=== PATIENT | female | born 1985 | race Caucasian/White ===

== ENCOUNTER 2017-04-08 09:34 | Emergency (ER) | payer OTHER ==
[2017-04-08 10:32] VITALS: BP 100/63
--- NOTE | 2017-04-08 10:49 | UC ---
Back Pain HPI - HPI Summary HPI Summary: $ year disabled child lunged forward when they were on the stairs yesterday she jerked backward so they would not fall. Awoke this morning with stiffness in lower back. has had similar events in the past and has gotten good relief with flexeril and ibuprofen - History of Current Complaint Chief Complaint: UCBiteInjury Stated Complaint: BACK COMPLAINT Time Seen by Provider: 04/08/17 10:40 Hx Obtained From: Patient Hx Last Menstrual Period: 03/29/17 ?: No Onset/Duration: Sudden Onset, Worse Since - this morning Timing: Constant Severity Initially: Mild Severity Currently: Moderate Pain Intensity: 7 Pain Scale Used: 0-10 Numeric Back Pain: Is Discrete @ - lower back both sides Character: Throbbing, Spasmodic, Stiffness Aggravating Factor(s): Movement, Lifting, Bending Associated Signs And Symptoms: Positive: Negative - Allergies/Home Medications Allergies/Adverse Reactions: Allergies Allergy/AdvReac Type Severity Reaction Status Date / Time Diazepam [From Valium] Allergy Intermediate hyperactivity, Verified 04/08/17 10: 31 "convulsions Morphine Allergy Difficulty Verified 04/08/17 10:31 Breathing Home Medications: Home Medications Ibuprofen TAB* [Motrin TAB* 800 MG] 800 mg PO Q6H PRN 04/08/17 [History Confirmed 04/08/17] Ondansetron [Zofran 8 MG Odt] 8 mg PO PRN 04/08/17 [History] QUEtiapine XR TAB* [Seroquel Xr TAB*] 200 mg PO BEDTIME 04/08/17 [History Confirmed 04/08/17] PMH/Surg Hx/FS Hx/Imm Hx Previously Healthy: No Psychological History: Anxiety - Surgical History Surgical History: Yes Surgery Procedure, Year, and Place: APPENDECTOMY, 2 C-SECTIONS, T&A,TUBES EARS, TUBAL AFTER 2ND , MELANOMA REMOVED FROM FOOT - Family History Known Family History: Positive: None, Cardiac Disease, Hypertension, Diabetes - Social History 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 Lives: With Family Alcohol Use: Rare Substance Use Type: None Smoking Status (MU): Light Every Day Tobacco Smoker Type: Cigarettes Amount Used/How Often: HALF A PACK OF CIGARETTES A DAY Length of Time of Smoking/Using Tobacco: 15 YRS Have You Smoked in the Last Year: Yes Household Exposure Type: Cigarettes Cessation Counseling: Counseled 3+Min - 10 Min - Immunization History Most Recent Influenza Vaccination: FALL 2012 Review of Systems Constitutional: Negative Skin: Negative Eyes: Negative ENT: Negative Respiratory: Negative Cardiovascular: Negative Gastrointestinal: Negative Genitourinary: Negative Motor: Negative Neurovascular: Negative Musculoskeletal: Myalgia - lower back Neurological: Negative Psychological: Negative Is Patient Immunocompromised?: No All Other Systems Reviewed And Are Negative: Yes Physical Exam Triage Information Reviewed: Yes Appearance: Well-Appearing, Pain Distress, Obese Vital Signs: Initial Vital Signs Temp 98.6 F 04/08/17 10:20 Pulse 96 04/08/17 10:20 Resp 16 04/08/17 10:20 BP 100/63 04/08/17 10:20 Pulse Ox 98 04/08/17 10:20 Vital Signs Reviewed: Yes Eye Exam: Normal Eyes: Positive: Conjunctiva Clear ENT Exam: Normal ENT: Positive: Normal ENT inspection, Hearing grossly normal. Negative: Nasal congestion, Nasal drainage, Trismus, Muffled/hoarse voice Dental Exam: Normal Neck exam: Normal Neck: Positive: Supple, Nontender Respiratory Exam: Normal Respiratory: Positive: Chest non-tender, No respiratory distress, No accessory muscle use Cardiovascular Exam: Normal Cardiovascular: Positive: RRR, Pulses Normal, Brisk Capillary Refill Musculoskeletal Exam: Normal Musculoskeletal: Positive: No Edema, Strength Limited @ - back, ROM Limited @ - lower back Neurological Exam: Normal Neurological: Positive: Alert, Muscle Tone Normal Psychological Exam: Normal Skin Exam: Normal Back Pain Course/Dx - Course Course Of Treatment: continue Ibuprofen Add soma, core strengthening exercise, follow with PCP , smoking cesassation information - Differential Dx/Diagnosis Differential Diagnosis/HQI/PQRI: Fracture, Renal Colic, Strain, Sprain Provider Diagnoses: Muscle strain lower back, nicotine dependent Discharge - Discharge Plan Condition: Stable Disposition: HOME Prescriptions: Carisoprodol TAB* [Soma TAB*] 350 mg PO TID PRN #15 tab MDD 3 PRN Reason: muscle spasm Patient Education Materials: How to Stop Smoking (ED), Low Back Strain (ED), Muscle Spasm (ED), Core Strengthening Exercises (GEN), Lower Back Exercises (ED) Referrals: Mitesh Levine MD [Primary Care Provider] - 1 Week
== END 2017-04-08 10:58 | disposition home or self-care (01) ==
LOC: UCCORT 09:34
DX: S39.012A Strain of muscle, fascia and tendon of lower back, initial encounter (principal); X50.1XXA Overexertion from prolonged static or awkward postures, initial encounter
CPT/HCPCS: 99212; G0463

== ENCOUNTER 2017-12-03 20:08 | Emergency (ER) | payer OTHER ==
[2017-12-03 20:18] VITALS: BP 105/61
--- NOTE | 2017-12-03 20:35 | UC ---
Seizure HPI - HPI Summary HPI Summary: Had generalized seizure at 1630 and fell down. Last seizure 3 weeks ago. Has been off depakote for 1 year. Has been too busy to go to the neurologist for her prescriptions. - History Of Current Complaint Chief Complaint: UCHeadInjury Stated Complaint: FALL FROM SEIZURE Hx Obtained From: Patient Hx Last Menstrual Period: today ?: No Onset/Duration: Sudden Onset, Lasting Minutes - 1, Resolved Severity Of Seizure: Self-Limited Character: Positive: Generalized Clonic-Tonic Aggravating Factor(s): Trauma - fell down a step and hit head and right shoulder , pain in the right hip and right side of the back. Has headache Alleviating Factor(s): Spontaneous Resolution Associated Signs And Symptoms: Anxiety, Recent Trauma - Allergies/Home Medications Allergies/Adverse Reactions: Allergies Allergy/AdvReac Type Severity Reaction Status Date / Time diazepam [From Valium] Allergy hyperactivity, Verified 12/03/17 20:21 convulsions morphine Allergy Difficulty Verified 12/03/17 20:20 Breathing Home Medications: Home Medications Ondansetron TAB* [Zofran 4 MG Tab*] 8 mg PO Q8H PRN 12/03/17 [History Confirmed 12/03/17] PMH/Surg Hx/FS Hx/Imm Hx Neurological History: Seizures Psychological History: Anxiety - Surgical History Surgical History: Yes Surgery Procedure, Year, and Place: APPENDECTOMY, 2 C-SECTIONS, T&A,TUBES EARS, TUBAL AFTER 2ND , MELANOMA REMOVED FROM FOOT - Family History Known Family History: Positive: None, Cardiac Disease, Hypertension, Diabetes - Social History Occupation: Disabled Lives: With Family Alcohol Use: None Substance Use Type: None Smoking Status (MU): Heavy Every Day Tobacco Smoker Type: Cigarettes Amount Used/How Often: HALF A PACK OF CIGARETTES A DAY Length of Time of Smoking/Using Tobacco: 15 YRS Have You Smoked in the Last Year: Yes Household Exposure Type: Cigarettes - Immunization History Most Recent Influenza Vaccination: FALL 2012 Review of Systems Musculoskeletal: Arthralgia, Myalgia Neurological: Headache Is Patient Immunocompromised?: No All Other Systems Reviewed And Are Negative: Yes Physical Exam Triage Information Reviewed: Yes Appearance: Pain Distress - moderate pain, Obese Vital Signs: Initial Vital Signs Temp 97 F 12/03/17 20:10 Pulse 68 12/03/17 20:10 Resp 18 12/03/17 20:10 BP 105/61 05/20/18 20:10 Pulse Ox 99 12/03/17 20:10 Vital Signs Reviewed: Yes Eyes: Positive: Conjunctiva Clear Neck: Positive: Nontender, Tenderness @ - cervical spinous process tenderness Respiratory: Positive: Lungs clear Cardiovascular: Positive: RRR, No Murmur Musculoskeletal: Positive: ROM Limited @ - Right shoulder, right hip and low back. Severely antalgic gait, Other: - Tender right scapula, lumbar spinous processes and right sided muscles Neurological: Positive: Alert - but fatigued. Psychological Exam: Normal Skin Exam: Normal Re-Evaluation - Re-Evaluation First Eval Re-Evaluation Time: 21:51 - Mental status stable. Change: Unchanged Seizure Course/Dx - Differential Dx/Diagnosis Differential Diagnosis/HQI/PQRI: Intracranial Bleed, Known Seizure Disorder Provider Diagnoses: Chronic seizure disorder. Contusion shoulder, head and hip. Discharge - Sign-Out/Discharge Documenting (check all that apply): Discharge/Admit/Transfer - Discharge Plan Condition: Stable Disposition: HOME Prescriptions: Divalproex ER TAB(*) [Depakote ER TAB(*)] 500 mg PO DAILY #30 tab.er Patient Education Materials: Contusion in Adults (ED), Scalp Contusion in Adults (ED), Hip Contusion (ED), Epilepsy (ED), Valproic Acid (By mouth) Referrals: Mitesh Levine MD [Primary Care Provider] - Additional Instructions: IF HEADACHE GETS WORSE GO TO THE ER. - Billing Disposition and Condition Condition: STABLE Disposition: HOME
--- NOTE | 2017-12-03 21:56 | RAD ---
HISTORY: Trauma, right scapular tenderness COMPARISONS: None VIEWS: 2, frontal and lateral views of the right scapula FINDINGS: BONE DENSITY: Normal. BONES: There is no displaced fracture. JOINTS: There is no arthropathy. ALIGNMENT: There is no dislocation. SOFT TISSUES: Unremarkable. OTHER FINDINGS: None. IMPRESSION: NO ACUTE OSSEOUS INJURY. IF SYMPTOMS PERSIST, RECOMMEND REPEAT IMAGING.
--- NOTE | 2017-12-03 21:57 | RAD ---
HISTORY: Trauma, cervical spinous process tenderness COMPARISONS: Lateral views of the cervical spine dated December 03, 2014 at 9:03 PM VIEWS: 7, Frontal, lateral, swimmer's, open-mouth odontoid, and bilateral oblique views of the cervical spine. FINDINGS: The cervical spine is visualized from the skull base through T1. ALIGNMENT: There is straightening of the normal cervical lordosis. VERTEBRAL BODIES: The odontoid process is intact. The atlantoaxial intervals are symmetric. JOINTS: There is no subluxation or dislocation. There is fusion of the C2 and C3 facet joints.. There is no osseous neural foraminal narrowing on the oblique views. INTERVERTEBRAL DISCS: There is diffuse loss of intervertebral disc height. SOFT TISSUE: The prevertebral soft tissues are normal. OTHER: The skull base is normal. The lung apices are clear. IMPRESSION: STRAIGHTENING OF THE CERVICAL LORDOSIS. NO ACUTE OSSEOUS INJURY TO THE CERVICAL SPINE
--- NOTE | 2017-12-03 21:58 | RAD ---
HISTORY: Trauma, cervical spinous process tenderness COMPARISONS: None VIEWS: 3, lateral and swimmer's views of the cervical spine FINDINGS: Limited lateral projection of the cervical spine from the skull base through T1. There is straightening of the cervical lordosis. There is fusion of the facets of C2 and C3. There is no displaced fracture or subluxation. The intervertebral discs are normal in height. IMPRESSION: LIMITED LATERAL PROJECTIONS OF THE CERVICAL SPINE DEMONSTRATE NO ACUTE OSSEOUS INJURY.
== END 2017-12-03 22:03 | disposition home or self-care (01) ==
LOC: UCCORT 20:08
DX: S40.011A Contusion of right shoulder, initial encounter (principal); S00.93XA Contusion of unspecified part of head, initial encounter; S70.00XA Contusion of unspecified hip, initial encounter; W19.XXXA Unspecified fall, initial encounter; Y93.9 Activity, unspecified; Y92.9 Unspecified place or not applicable; Z88.5 Allergy status to narcotic agent; Z88.8 Allergy status to other drugs, medicaments and biological substances; F17.210 Nicotine dependence, cigarettes, uncomplicated; G40.909 Epilepsy, unspecified, not intractable, without status epilepticus
CPT/HCPCS: 72020; 72050; 99213; G0463

== ENCOUNTER 2018-01-29 18:04 | Emergency (ER) | payer OTHER ==
[2018-01-29 19:12] VITALS: BP 129/56
--- NOTE | 2018-01-29 19:29 | UC ---
Back Pain HPI - HPI Summary HPI Summary: On the 12th of this month patient states that she accidentally tripped on a box that was on her floor causing her to fall backwards and landed on her left lower back. She is having pain in her left lower back that sometimes radiates into her left thigh since then. . She's been self treating with occasional Motrin without relief she took 600 mg of Motrin early this morning and then a second dose about 3-4 hours ago. - History of Current Complaint Chief Complaint: UCBackPain Stated Complaint: LOW BACK PAIN/ PT FELL Time Seen by Provider: 01/29/18 19:18 Hx Obtained From: Patient Hx Last Menstrual Period: 01/23/18 Onset/Duration: Sudden Onset Timing: Constant Severity Initially: Severe Severity Currently: Severe Pain Intensity: 10 Aggravating Factor(s): Movement Alleviating Factor(s): Nothing Associated Signs And Symptoms: Positive: Bruising - L low back. Negative: Fever , Weakness, Numbness, Tingling, Abdominal Pain, Flank Pain, Bladder Incontinence , Bowel Incontinence - Risk Factors AAA Risk Factors: Negative Cauda Equina Risk Factors: Negative Epidural Abscess Risk Factors: Negative - Allergies/Home Medications Allergies/Adverse Reactions: Allergies Allergy/AdvReac Type Severity Reaction Status Date / Time diazepam [From Valium] Allergy hyperactivity, Verified 01/29/18 19:03 convulsions morphine Allergy Difficulty Verified 01/29/18 19:03 Breathing Home Medications: Home Medications Divalproex ER TAB(*) [Depakote ER TAB(*)] 500 mg PO BEDTIME 01/29/18 [History Confirmed 01/29/18] PMH/Surg Hx/FS Hx/Imm Hx - Additional Past Medical History Additional PMH: Sleep disturbance, chronic neck and shoulder pain, seizure disorder. 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 Lives: With Family Alcohol Use: Rare Substance Use Type: None Smoking Status (MU): Heavy Every Day Tobacco Smoker Type: Cigarettes Amount Used/How Often: 6 CIGARETTES A DAY Length of Time of Smoking/Using Tobacco: 15 YRS Have You Smoked in the Last Year: Yes Household Exposure Type: Cigarettes - Immunization History Most Recent Influenza Vaccination: FALL 2012 Vaccination Up to Date: Yes Review of Systems Constitutional: Negative Skin: Negative Eyes: Negative ENT: Negative Respiratory: Negative Cardiovascular: Negative Gastrointestinal: Negative Genitourinary: Negative Motor: Negative Neurovascular: Negative Musculoskeletal: Other: - Left low back pain intermittently radiates in the left thigh Neurological: Negative Psychological: Negative Is Patient Immunocompromised?: No All Other Systems Reviewed And Are Negative: Yes Physical Exam Triage Information Reviewed: Yes Appearance: Pain Distress Vital Signs: Initial Vital Signs Temp 99.1 F 01/29/18 19:05 Pulse 98 01/29/18 19:05 Resp 16 01/29/18 19:05 BP 129/56 01/29/18 19:05 Pulse Ox 98 01/29/18 19:05 Vital Signs Reviewed: Yes Eyes: Positive: Conjunctiva Clear ENT: Positive: Normal ENT inspection Neck: Positive: Supple, Nontender, No Lymphadenopathy Respiratory: Positive: Lungs clear, Normal breath sounds Cardiovascular: Positive: RRR, No Murmur Abdomen Description: Positive: Nontender, No Organomegaly, Soft. Negative: Distended, Guarding Bowel Sounds: Positive: Present Musculoskeletal: Positive: Other: - Neck and back exam: There are 2 small purple bruises the left lower back otherwise the cervicothoracic and lumbar spine are without gross deformity swelling or discoloration. Cervical thoracic spine are nontender to palpation. There is mild tenderness to palpation over the lumbar spine and left paraspinal muscles in the lumbar region. Range of motion is intact but guarded. Patient has tenderness to palpation of the left sciatic notch and a positive straight leg raise on the left. Negative straight leg raise on the right is 5 out of 5 strength and 2+ reflexes 4 no saddle anesthesia. She is slow but steady gait. Neurological: Positive: Alert Psychological: Positive: Normal Response To Family, Age Appropriate Behavior Skin Exam: Normal Diagnostics - Radiology No standard instances Xray Interpretation: No Acute Changes Radiology Interpretation Completed By: Radiologist - NO ACUTE BONY FINDINGS= lumbar spine Back Pain Course/Dx - Course Course Of Treatment: no concern for infection, acute abdomen or cauda equina. no fx/dislocation on exam. Based on history and physical exam patient does have sciatica along with acute low back pain. - Differential Dx/Diagnosis Provider Diagnoses: acute low back pain. sciatica-L Discharge - Sign-Out/Discharge Documenting (check all that apply): Patient Departure - Discharge Plan Condition: Stable Disposition: HOME Prescriptions: Cyclobenzaprine TAB* [Flexeril 10 MG TAB*] 10 mg PO TID PRN #10 tab PRN Reason: Spasms - Muscle methylPREDNISolone [Medrol Dosepak 4 MG*] 0 mg PO .SEE ADRIAN INSTRUCTION #1 tab Patient Education Materials: Sciatica (ED), Acute Low Back Pain (ED) Referrals: Mitesh Levine MD [Primary Care Provider] - 5 Days - Billing Disposition and Condition Condition: STABLE Disposition: Home Attestation Statement User Type: Provider - I was available for consult. This patient was seen by the ANGELIC. The patient was not presented to, seen by, or examined by me. -Tabitha
[2018-01-29] MEDS ORDERED: Ketorolac INJ* 30 MG/ML 1 ML VIAL IM ONE (19:31)
--- NOTE | 2018-01-29 19:46 | RAD ---
INDICATION: Fall. Low back pain COMPARISON: CT November 05, 2013 TECHNIQUE: Routine PA, lateral, and oblique imaging was performed . FINDINGS: Bones: There are no acute bony findings. There are no significant osteoarthritic findings. Alignment: Normal Disc spaces: The remaining disc spaces are well-maintained Soft tissues: There are no soft tissue abnormalities. IMPRESSION: NO ACUTE BONY FINDINGS
== END 2018-01-29 20:20 | disposition home or self-care (01) ==
LOC: UCCORT 18:04
DX: M54.5 Low back pain (principal); M54.32 Sciatica, left side; G40.909 Epilepsy, unspecified, not intractable, without status epilepticus; M54.2 Cervicalgia; G89.29 Other chronic pain; M25.519 Pain in unspecified shoulder
CPT/HCPCS: 72100; 96372; 99212; G0463; J1885

== ENCOUNTER 2018-03-13 09:45 | Emergency (ER) | payer OTHER ==
[2018-03-13 12:00] VITALS: BP 103/65
--- NOTE | 2018-03-13 12:20 | UC ---
Skin Complaint HPI - HPI Summary HPI Summary: sores on left lower abd and left upper thigh x 5 day the areas is red and burning, ? spider bites no fever, no chills - History of Current Complaint Chief Complaint: UCSkin Time Seen by Provider: 03/13/18 12:09 Stated Complaint: POSS. SPIDER BITES Hx Obtained From: Patient Hx Last Menstrual Period: 02/20/18 ?: No Onset/Duration: Gradual Onset, Lasting Days - 5, Still Present Timing: Constant Onset Severity: Moderate Current Severity: Moderate Pain Intensity: 8 Location: Discrete - left lower abd, left upper thigh Character: Pain, Redness, Painful Aggravating Factor(s): Touch Alleviating Factor(s): Nothing Associated Signs & Symptoms: Positive: Tenderness. Negative: Nausea, Vomiting, Numbness, Fever, Chills, Drainage - Allergy/Home Medications Allergies/Adverse Reactions: Allergies Allergy/AdvReac Type Severity Reaction Status Date / Time diazepam [From Valium] Allergy hyperactivity, Verified 03/13/18 12:01 convulsions morphine Allergy Difficulty Verified 03/13/18 12:01 Breathing Home Medications: Home Medications Ibuprofen TAB* [Motrin TAB* 800 MG] 800 mg PO Q12HR PRN 03/13/18 [History Confirmed 03/13/18] Review of Systems Constitutional: Negative Eyes: Negative ENT: Negative Respiratory: Negative Cardiovascular: Negative Is Patient Immunocompromised?: No All Other Systems Reviewed And Are Negative: Yes PMH/Surg Hx/FS Hx/Imm Hx Psychological History: Anxiety, Depression, Bipolar Disorder, Schizophrenia - Surgical History Surgical History: Yes Surgery Procedure, Year, and Place: APPENDECTOMY, 2 C-SECTIONS, T&A,TUBES EARS, TUBAL AFTER 2ND , MELANOMA REMOVED FROM FOOT - Family History Known Family History: Positive: None, Cardiac Disease, Hypertension, Diabetes - Social History Alcohol Use: Rare Substance Use Type: None Smoking Status (MU): Heavy Every Day Tobacco Smoker Type: Cigarettes Amount Used/How Often: 6 CIGARETTES A DAY Length of Time of Smoking/Using Tobacco: 15 YRS Have You Smoked in the Last Year: Yes Household Exposure Type: Cigarettes - Immunization History Most Recent Influenza Vaccination: FALL 2012 Most Recent Tetanus Shot: Unknown Vaccination Up to Date: Yes Physical Exam Triage Information Reviewed: Yes Appearance: No Pain Distress, Obese Vital Signs: Initial Vital Signs Temp 98.8 F 03/13/18 11:47 Pulse 78 03/13/18 11:47 Resp 18 03/13/18 11:47 BP 103/65 03/13/18 11:47 Pulse Ox 98 03/13/18 11:47 Vital Signs Reviewed: Yes Eyes: Positive: Conjunctiva Clear ENT: Positive: Normal ENT inspection, Hearing grossly normal, Pharynx normal Neck: Positive: Supple, Nontender, No Lymphadenopathy Respiratory: Positive: Chest non-tender, Lungs clear, Normal breath sounds Cardiovascular: Positive: RRR, No Murmur, Pulses Normal Skin: Positive: Other - abscess left lower abd and left upper thigh , + erythema , tendeness, Course/Dx - Diagnoses Provider Diagnoses: abscess Discharge - Sign-Out/Discharge Documenting (check all that apply): Patient Departure All imaging exams completed and their final reports reviewed: No Studies - Discharge Plan Condition: Stable Disposition: HOME Prescriptions: Amoxicillin/Clavulanate TAB* [Augmentin TAB 875*] 875 mg PO BID 10 Days #20 tab Triamcinolone 0.1% CREAM (NF) [Kenalog 0.1% Cream (NF)] 1 applic TOPICAL BID # 30 gm Patient Education Materials: Abscess (ED) Referrals: Mitesh Levine MD [Primary Care Provider] - 7 Days - Billing Disposition and Condition Condition: STABLE Disposition: Home
== END 2018-03-13 12:33 | disposition home or self-care (01) ==
LOC: UCCORT 09:45
DX: L02.211 Cutaneous abscess of abdominal wall (principal); L02.416 Cutaneous abscess of left lower limb; F17.210 Nicotine dependence, cigarettes, uncomplicated; Z88.8 Allergy status to other drugs, medicaments and biological substances; Z88.5 Allergy status to narcotic agent
CPT/HCPCS: 99202; G0463

== ENCOUNTER 2018-05-02 11:32 | Emergency (ER) | payer OTHER ==
[2018-05-02] MEDS ORDERED: HYDROcodone/ACETAMIN 5-325 MG* 1 TAB PO ONE (13:52)
--- NOTE | 2018-05-02 14:05 | UC ---
Back Pain HPI - HPI Summary HPI Summary: 33-year-old female presents with 3 day history of low back pain. Describes pain as a constant sharp, spasming pain. Radiates down to her left buttocks and right lower back. Pain worsens with bending, movement, and twisting. States she had one episode of emesis last night she took an ondansetron with relief. Denies fever, chills, chest pain, palpitations, shortness of breath, abdominal pain, dysuria, frequency, urgency, hematuria, numbness, tingling, or weakness of the lower extremities, or loss of bowel or bladder control. - History of Current Complaint Chief Complaint: UCBackPain Stated Complaint: LOWER BACK PAIN Time Seen by Provider: 05/02/18 13:22 Hx Obtained From: Patient Hx Last Menstrual Period: 04/18/18 Onset/Duration: Gradual Onset, Lasting Days - 3 Timing: Constant Severity Currently: Moderate Pain Intensity: 9 Character: Sharp, Spasmodic Aggravating Factor(s): Movement, Lifting, Bending, Walking Alleviating Factor(s): Nothing Associated Signs And Symptoms: Negative: Fever, Weakness, Numbness, Tingling, Abdominal Pain, Flank Pain, Bladder Incontinence, Bowel Incontinence - Allergies/Home Medications Allergies/Adverse Reactions: Allergies Allergy/AdvReac Type Severity Reaction Status Date / Time diazepam [From Valium] Allergy hyperactivity, Verified 05/02/18 13:20 convulsions morphine Allergy Difficulty Verified 05/02/18 13:20 Breathing PMH/Surg Hx/FS Hx/Imm Hx Neurological History: Seizures, Migraine - Surgical History Surgical History: Yes Surgery Procedure, Year, and Place: APPENDECTOMY, 2 C-SECTIONS, T&A,TUBES EARS, TUBAL AFTER 2ND , MELANOMA REMOVED FROM FOOT - Family History Known Family History: Positive: Cardiac Disease, Hypertension, Diabetes - Social History Occupation: Unemployed Lives: With Family Alcohol Use: Rare Substance Use Type: None Smoking Status (MU): Light Every Day Tobacco Smoker Type: Cigarettes Amount Used/How Often: 1/3 PPD Length of Time of Smoking/Using Tobacco: Since Age 16 Have You Smoked in the Last Year: Yes Household Exposure Type: Cigarettes - Immunization History Most Recent Influenza Vaccination: FALL 2012 Most Recent Tetanus Shot: Unknown Vaccination Up to Date: Yes Review of Systems Constitutional: Negative Skin: Negative Respiratory: Negative Cardiovascular: Negative Gastrointestinal: Vomiting Genitourinary: Negative Motor: Negative Neurovascular: Negative Musculoskeletal: Other: - See HPI Neurological: Negative Is Patient Immunocompromised?: No All Other Systems Reviewed And Are Negative: Yes Physical Exam Triage Information Reviewed: Yes Appearance: Well-Nourished, Pain Distress - Moderate pain distress. Unable to find a comfortable position. Vital Signs: Initial Vital Signs Temp 98.2 F 05/02/18 13:19 Pulse 110 05/02/18 13:19 Resp 18 05/02/18 13:19 BP 148/58 05/02/18 13:19 Pulse Ox 99 05/02/18 13:19 Vital Signs Reviewed: Yes Respiratory: Positive: Lungs clear, Normal breath sounds, No respiratory distress Cardiovascular: Positive: RRR, No Murmur Abdomen Description: Positive: Nontender, No Organomegaly, Soft. Negative: CVA Tenderness (R), CVA Tenderness (L), Distended, Guarding Musculoskeletal: Positive: Strength Intact, Other: - Mild tenderness over lumbar spine with some left soft tissue paraspinous tenderness without spasm. Neurological: Positive: Alert, Muscle Tone Normal, Other: - Sensation intact distally. Skin Exam: Normal Back Pain Course/Dx - Course Course Of Treatment: 33 year old female with 3 day history of low back pain. Her history and exam are consistent with a musculoskeletal origin although there may be some radiculopathy present as well considering her reports of radiation of the pain into the buttocks. She appeared quite uncomfortable on exam and had a great deal of trouble finding a comfortable position. She reports allergy to morphine however states she has taken hydrocodone in past without problem therefore a dose was given in the clinic. Recommend conservative treatment with NSAIDs, muscle relaxant, and heat. She is to follow up with her PCP in 3 days if no improvement in symptoms. Warning symptoms reviewed. Verbalized understanding and agrees with POC. - Differential Dx/Diagnosis Provider Diagnoses: acute low back pain Discharge - Sign-Out/Discharge Documenting (check all that apply): Patient Departure All imaging exams completed and their final reports reviewed: No Studies - Discharge Plan Condition: Stable Disposition: HOME Prescriptions: Cyclobenzaprine HCl 10 mg PO Q8HR PRN #30 tablet PRN Reason: Spasms - Back Patient Education Materials: Acute Low Back Pain (ED) Referrals: Dany Montgomery MD [Primary Care Provider] - 3 Days (If no improvement.) Additional Instructions: Your history and exam are consistent with musculoskeletal back pain. You were given a dose of a pain medication called hydrocodone-acetaminophen 5 mg/325 mg 1 tab in the clinic for pain relief. This is a narcotic pain medication and will cause drowsiness so do not drive or operate machinery while taking. Continue using ibuprofen every 8 hours for the next several days to help manage the pain. Take this with some food to prevent upset stomach. I have given you a prescription for a muscle relaxant called Flexeril. You may take 1 tab every 8 hours as needed for severe pain or spasm. This will also cause drowsiness so do not drive or operate machinery while taking. Use a heating pad to the affected area for 15-20 minutes 4 times a day. Your blood pressure in the clinic today was elevated. This is probably related to your pain however you should follow up with your primary care provider within 4 weeks to have this rechecked. Follow up in 3 days if no improvement in your symptoms. Seek immediate medical attention in the emergency room if you develop fever greater than 100.5 F, have abdominal pain, persistent vomiting, lose control of your bowel or bladder, or have any weakness, numbness, or tingling in your legs. - Billing Disposition and Condition Condition: STABLE Disposition: Home - Attestation Statements Provider Attestation: I was available for consult. This patient was seen by the ANGELIC. The patient was not presented to, seen by, or examined by me. -Tabitha
[2018-05-02 14:23] VITALS: BP 103/72
== END 2018-05-02 14:23 | disposition home or self-care (01) ==
LOC: UCCORT 11:32
DX: M54.5 Low back pain (principal); F17.210 Nicotine dependence, cigarettes, uncomplicated; R03.0 Elevated blood-pressure reading, without diagnosis of hypertension; Z85.820 Personal history of malignant melanoma of skin; Z88.5 Allergy status to narcotic agent; Z88.8 Allergy status to other drugs, medicaments and biological substances
CPT/HCPCS: 99212; G0463

== ENCOUNTER 2018-12-26 09:24 | Emergency (ER) | payer OTHER ==
[2018-12-26 09:50] VITALS: BP 130/65
[2018-12-26] MEDS ORDERED: HYDROcodone/ACETAMIN 5-325 MG* 1 TAB PO ONE (10:14)
--- NOTE | 2018-12-26 10:19 | UC ---
Back Pain HPI - HPI Summary HPI Summary: 33-year-old woman comes in with a chief complaint of low back pain. Pain started 3-4 days ago after lifting her son and twisting. When it initially happened there wasn't much pain in the low back but the next morning when she woke up she had much more severe low back pain. The lower lumbar on occasion it 's spreads across low back. She does have some radiation into the left buttock. She suffers from chronic neck and upper back pain and intermittent low back pain. No weakness or numbness no difficulty controlling urine or bowels. Pain is worse with twisting turning bending. No abdominal pain. No dysuria. Has already taken NSAID and flexeril at home without relief. - History of Current Complaint Chief Complaint: UCBackPain Stated Complaint: LOWER BACK PAIN Time Seen by Provider: 12/26/18 10:04 Hx Last Menstrual Period: 12/05/18 Pain Intensity: 10 - Allergies/Home Medications Allergies/Adverse Reactions: Allergies Allergy/AdvReac Type Severity Reaction Status Date / Time diazepam [From Valium] Allergy hyperactivity, Verified 12/26/18 09:50 convulsions morphine Allergy Difficulty Verified 12/26/18 09:50 Breathing Home Medications: Home Medications Naproxen [Naproxen 375 mg tab] 1 tab PO ONCE 12/26/18 [History Confirmed ] PMH/Surg Hx/FS Hx/Imm Hx Previously Healthy: Yes - CHRONIC NECK AND BACK PAIN - Surgical History Surgical History: Yes Surgery Procedure, Year, and Place: APPENDECTOMY, 2 C-SECTIONS, T&A,TUBES EARS, TUBAL AFTER 2ND , MELANOMA REMOVED FROM FOOT - Family History Known Family History: Positive: None, Cardiac Disease, Hypertension, Diabetes - Social History Alcohol Use: Rare Substance Use Type: None Smoking Status (MU): Light Every Day Tobacco Smoker Type: Cigarettes Amount Used/How Often: 1/2 ppd Length of Time of Smoking/Using Tobacco: Since Age 16 Have You Smoked in the Last Year: Yes Household Exposure Type: Cigarettes - Immunization History Most Recent Influenza Vaccination: FALL 2012 Most Recent Tetanus Shot: Unknown Vaccination Up to Date: Yes Review of Systems All Other Systems Reviewed And Are Negative: Yes Constitutional: Positive: Negative Skin: Positive: Negative Eyes: Positive: Negative ENT: Positive: Negative Respiratory: Positive: Negative Cardiovascular: Positive: Negative Gastrointestinal: Positive: Negative Genitourinary: Positive: Negative Motor: Positive: Negative Neurovascular: Positive: Negative Musculoskeletal: Positive: Other: - SEE HPI Neurological: Positive: Negative Psychological: Positive: Negative Is Patient Immunocompromised?: No Physical Exam Triage Information Reviewed: Yes Appearance: Well-Appearing, Well-Nourished, Pain Distress - with rom of low back Vital Signs: Initial Vital Signs Temp 98.6 F 12/26/18 09:44 Pulse 99 12/26/18 09:44 Resp 20 12/26/18 09:44 BP 130/65 12/26/18 09:44 Pulse Ox 99 12/26/18 09:44 Vital Signs Reviewed: Yes Eye Exam: Normal Eyes: Positive: Conjunctiva Clear Neck: Positive: Supple Respiratory: Positive: No respiratory distress Musculoskeletal: Positive: Strength Intact, ROM Intact, Other: - Tender to palpation low back. LE FROM with NL strength. No sensation deficit. Neurological: Positive: Alert, Muscle Tone Normal Psychological Exam: Normal Psychological: Positive: Age Appropriate Behavior Skin Exam: Normal Back Pain Course/Dx - Differential Dx/Diagnosis Provider Diagnosis: Low back pain Discharge - Sign-Out/Discharge Documenting (check all that apply): Patient Departure All imaging exams completed and their final reports reviewed: No Studies - Discharge Plan Condition: Stable Disposition: HOME Prescriptions: HYDROcodone/ACETAMIN 5-325 MG* [[place] 5-325 TAB*] 1 tab PO Q4H PRN #20 tab MDD 6 PRN Reason: Pain Patient Education Materials: Acute Low Back Pain (ED), Lower Back Exercises (ED ) Referrals: Dany Montgomery MD [Primary Care Provider] - Additional Instructions: FOLLOW UP WITH YOUR DOCTOR. GET RECHECKED SOONER IF YOUR CONDITION WORSENS; WEAKNESS, NUMBNESS, DIFFICULTY CONTROLLING BOWEL OR BLADDER, PAIN OR ANY QUESTIONS OR CONCERNS. - Billing Disposition and Condition Condition: STABLE Disposition: Home
== END 2018-12-26 10:26 | disposition home or self-care (01) ==
LOC: UCCORT 09:24
DX: M54.5 Low back pain (principal); X50.0XXA Overexertion from strenuous movement or load, initial encounter; Y93.89 Activity, other specified; Y92.9 Unspecified place or not applicable; G89.29 Other chronic pain; M54.2 Cervicalgia; Z88.5 Allergy status to narcotic agent; F17.210 Nicotine dependence, cigarettes, uncomplicated
CPT/HCPCS: 99212; G0463

== ENCOUNTER 2019-05-29 15:21 | Emergency (ER) | payer OTHER ==
[2019-05-29 15:57] VITALS: BP 121/87
[2019-05-29] MEDS ORDERED: HYDROcodone/ACETAMIN 5-325 MG* 1 TAB PO ONE (16:07)
--- NOTE | 2019-05-29 16:52 | UC ---
Back Pain HPI - HPI Summary HPI Summary: 34 year old female with PMh + for chronic back pain presents with lower back pain, worse this AM. Patient had a son with down syndrome, needs help with lifting, ADL's, pulled back earlier this week with increased pain. Was taking OTCs and flexeril, prescribed by her back specialist. Fell this morning on ice, no head injury/ LOC. increased pain over left hip, left side since. Pain with movement, difficulty sitting down. NO radiating pain, no numbness, no tingling. no decrease in strength. - History of Current Complaint Chief Complaint: UCBackPain Stated Complaint: LOW BACK PAIN Time Seen by Provider: 05/29/19 15:47 Hx Obtained From: Patient, Family/Retirement Plan Counselor - mother Hx Last Menstrual Period: 05/28/19 ?: No Onset/Duration: Sudden Onset, Lasting Hours Timing: Constant Severity Initially: Severe Severity Currently: Severe Pain Intensity: 9 Pain Scale Used: 0-10 Numeric Back Pain: Is Discrete @ - left hip, lower back Aggravating Factor(s): Movement, Lifting, Bending, Walking Associated Signs And Symptoms: Positive: Pain with Weight Bearing. Negative: Fever, Weakness, Numbness, Tingling, Abdominal Pain, Flank Pain, Bladder Incontinence, Bowel Incontinence, Weight Loss - Allergies/Home Medications Allergies/Adverse Reactions: Allergies Allergy/AdvReac Type Severity Reaction Status Date / Time diazepam [From Valium] Allergy hyperactivity, Verified 05/29/19 15:56 convulsions morphine Allergy Difficulty Verified 05/29/19 15:56 Breathing Home Medications: Home Medications Cyclobenzaprine HCl 10 mg PO QID 05/29/19 [History Confirmed 05/29/19] PMH/Surg Hx/FS Hx/Imm Hx Previously Healthy: No - h/o back pain in past - Surgical History Surgical History: Yes Surgery Procedure, Year, and Place: APPENDECTOMY, 2 C-SECTIONS, T&A,TUBES EARS, TUBAL AFTER 2ND , MELANOMA REMOVED FROM FOOT - Family History Known Family History: Positive: None, Cardiac Disease, Hypertension, Diabetes, Non-Contributory - Social History Alcohol Use: Rare Substance Use Type: None Smoking Status (MU): Light Every Day Tobacco Smoker Type: Cigarettes Amount Used/How Often: 1/2 ppd Length of Time of Smoking/Using Tobacco: Since Age 16 Have You Smoked in the Last Year: Yes Household Exposure Type: Cigarettes - Immunization History Most Recent Influenza Vaccination: FALL 2012 Most Recent Tetanus Shot: Unknown Vaccination Up to Date: Yes Review of Systems All Other Systems Reviewed And Are Negative: Yes Motor: Positive: Decreased ROM Musculoskeletal: Positive: Arthralgia, Edema, Myalgia Is Patient Immunocompromised?: No Physical Exam Triage Information Reviewed: Yes Appearance: No Pain Distress, Well-Nourished, Pain Distress - mild Vital Signs: Initial Vital Signs Temp 97.6 F 05/29/19 15:45 Pulse 111 05/29/19 15:45 Resp 21 05/29/19 15:45 BP 121/87 05/29/19 15:45 Pulse Ox 100 05/29/19 15:45 Vital Signs Reviewed: Yes Eyes: Positive: Conjunctiva Clear ENT: Positive: Hearing grossly normal Musculoskeletal: Positive: Strength Intact - axatic gait, able to stand on toes / heels, stand on alternating feet. neg homans b/l., No Edema Neurological: Positive: Alert, Other: - SITLT b/l lower extremities. Psychological Exam: Normal Skin Exam: Normal Back Pain Course/Dx - Course Course Of Treatment: Lower Back Pain - [place] as needed every 4 hours for pain - Flexeril as needed for muscle pain - Prednisone taper as written x next 3 days to decrease swelling, pain - Go to ER with increased pain, numbness, tingling, bowel or bladder incontinence. - Differential Dx/Diagnosis Differential Diagnosis/HQI/PQRI: Strain, Sprain Provider Diagnosis: Lower back pain Discharge ED - Sign-Out/Discharge Documenting (check all that apply): Patient Departure All imaging exams completed and their final reports reviewed: Yes - Discharge Plan Condition: Good Disposition: HOME Prescriptions: HYDROcodone/ACETAMIN 5-325 MG* [[place] 5-325 TAB*] 1 tab PO Q4H PRN #20 tab MDD 5 PRN Reason: Pain - Moderate predniSONE TAB* [Deltasone 10 MG TAB*] 3 tab PO .SEE TA #6 tab Patient Education Materials: Core Strengthening Exercises (GEN), Lower Back Exercises (ED), Low Back Strain (ED) Referrals: Dany Montgomery MD [Primary Care Provider] - Additional Instructions: - [place] as needed every 4 hours for pain - Flexeril as needed for muscle pain - Prednisone taper as written x next 3 days to decrease swelling, pain - Go to ER with increased pain, numbness, tingling, bowel or bladder incontinence. - Billing Disposition and Condition Condition: GOOD Disposition: Home
== END 2019-05-29 17:41 | disposition home or self-care (01) ==
LOC: UCCORT 15:21
DX: M54.5 Low back pain (principal); F17.210 Nicotine dependence, cigarettes, uncomplicated; G89.29 Other chronic pain; Z88.5 Allergy status to narcotic agent; Z88.8 Allergy status to other drugs, medicaments and biological substances
CPT/HCPCS: 72110; 99212; G0463